=== PATIENT | female | born 1965 | race Hispanic/Latino ===

== ENCOUNTER 2022-09-13 17:48 | Emergency (ER) | payer OTHER, BC ==
[~2022-09-13] VITALS: Ht 162.6 cm; Wt 68.5 kg
[2022-09-13] MEDS ORDERED: MORPHINE 2 MG SYG ONE (18:43)
[2022-09-13] MEDS ORDERED: ONDANSETRON 4MG INJ ONE (18:43)
[2022-09-13] MEDS ORDERED: MORPHINE 2 MG SYG IM ONE (19:00)
[2022-09-13] MEDS ORDERED: ONDANSETRON 4MG INJ IVP ONE ×2 (19:00→20:30)
[2022-09-13] MEDS ORDERED: METH4TAB3 PO (19:55)
[2022-09-13] MEDS ORDERED: SOLU-MEDROL 125MG VIAL IVP ONE (20:00)
[2022-09-13 20:43] VITALS: BP 149/70
== END 2022-09-13 20:47 | disposition home or self-care (01) ==
LOC: EDH 17:48
DX: S46.912A Strain of unspecified muscle, fascia and tendon at shoulder and upper arm level, left arm, initial encounter (principal); S46.911A Strain of unspecified muscle, fascia and tendon at shoulder and upper arm level, right arm, initial encounter; M79.18 Myalgia, other site; M54.2 Cervicalgia; V89.2XXA Person injured in unspecified motor-vehicle accident, traffic, initial encounter; Y93.I9 Activity, other involving external motion; Y92.488 Other paved roadways as the place of occurrence of the external cause; Y99.8 Other external cause status
CPT/HCPCS: 99285; 70450; 96374; 96375; 73030 ×2; 72125; 96372; 96376; J2405